=== PATIENT | male | born 1960 | race American Indian/Alaskan Native ===

== ENCOUNTER 2019-08-23 15:18 | Emergency (ER) | payer SELFPAY ==
--- NOTE | 2019-08-23 15:35 | Event Note ---
ED Screening Note Date of service: 08/23/19 Time: 15:29 ED Screening Note: 59 y o male presents with right leg swelling and pain with open wound x 2 days trip and fall land on feet 3 days ago, no initial pain was fine This initial assessment/diagnostic orders/clinical plan/treatment(s) is/are subject to change based on patients health status, clinical progression and re- assessment by fellow clinical providers in the ED. Further treatment and workup at subsequent clinical providers discretion. Patient/guardian urged not to elope from the ED as their condition may be serious if not clinically assessed and managed. Initial orders include: labs doppler xray
[2019-08-23 16:25] LABS: Basophils % (Auto) 0.3 % (0.0-1.8); Eosinophils # (Auto) 0.2 K/mm3 (0.0-0.4); Eosinophils % (Auto) 1.2 % (0.0-4.3); Hematocrit 40.3 % (35.5-45.6); Hemoglobin 13.5 gm/dl (11.8-15.2); Lymphocytes # (Auto) 1.1 K/mm3 (1.2-5.4); Lymphocytes % (Auto) 8.1 % (13.4-35.0); Mean Corpuscular HGB Conc 33 % (32-34); Mean Corpuscular Volume 84 fl (84-94); Monocytes # (Auto) 0.9 K/mm3 (0.0-0.8); Monocytes % (Auto) 6.9 % (0.0-7.3); Platelet Count 272 K/mm3 (140-440); Red Blood Count 4.79 M/mm3 (3.65-5.03); Red Cell Distribution Width 14.8 % (13.2-15.2)
[2019-08-23 16:35] LABS: BUN/Creatinine Ratio 14; Blood Urea Nitrogen 15 mg/dL (9-20); Calcium 9.2 mg/dL (8.4-10.2); Hemolysis Index 4
--- NOTE | 2019-08-23 16:44 | XRay Report ---
XR ankle 2V RT INDICATION: ankle pain. COMPARISON: None available. FINDINGS: There has been previous internal fixation in the distal left tibia with sideplate and screw fixation hardware. 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 There is no periprosthetic fra cture or hardware loosening. There is moderate diffuse soft tissue swelling without radiopaque foreign body or soft tissue gas. 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 Signer Name: Jermain Carolina MD Signed: 08/23/2019 4:39 PM Workstation Name: [id number]
--- NOTE | 2019-08-23 16:46 | XRay Report ---
XR foot 2V RT INDICATION / CLINICAL INFORMATION: Right foot pain and swelling. COMPARISON: None available. FINDINGS: There is moderate soft tissue swelling in the right foot without radiopaque foreign body or soft tiss ue gas. 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 There are no ag gressive appearing bone lesions. There is no aggressive bone destruction. Signer Name: Jermain Carolina MD Signed: 08/23/2019 4:41 PM Workstation Name: [id number]
--- NOTE | 2019-08-23 18:22 | Vascular Lab Report ---
VL venous duplex LE RT INDICATION / CLINICAL INFORMATION: r leg swellin. COMPARISON: None available. FINDINGS: No evidence of deep vein thrombosis. There is a large collection of complex fluid in the deep subcutaneous tissues of the lower leg. Sever al significantly enlarged but anatomically normal lymph nodes are demonstrated in the groin. IMPRESSION: 1. Large abnormal fluid collection in the subcutaneous tissues of the lower leg, with inguinal adenop athy. The possibility of abscess must certainly be considered. 2. Negative for deep vein thrombosis. Signer Name: Tyler Moreno MD Signed: 08/23/2019 6:17 PM Workstation Name: [id number]
[2019-08-23 21:29] VITALS: BP 130/58
[2019-08-23] MEDS ORDERED: CLINDAMYCIN 300 MG CAP PO ONE (22:00)
--- NOTE | 2019-08-23 22:39 | Emergency Department Report ---
- General Chief complaint: Extremity Injury, Lower Stated complaint: TRIPPED X 3 DAYS/RT ANKLE Time Seen by Provider: 08/23/19 21:41 Source: patient, family Mode of arrival: Wheelchair Limitations: Physical Limitation - History of Present Illness Initial comments: Reports patient has always had increased swelling of the right LE compared to the left LE. complaint: abscess/boil -: Gradual, days(s) (3 approximately) Location: RLE Severity: mild Severity scale (0 -10): 1 Quality: aching Consistency: constant Improves with: none Worsens with: none Associated symptoms: denies other symptoms - Related Data Previous Rx's Medication Instructions Recorded Last Taken Type Clindamycin [Clindamycin CAP] 300 mg PO Q6H #40 capsule 08/23/19 Unknown Rx Allergies Allergy/AdvReac Type Severity Reaction Status Date / Time No Known Allergies Allergy Unverified 08/23/19 15:20 Abscess Boil HPI - HPI Chief Complaint: Extremity Injury, Lower Stated Complaint: TRIPPED X 3 DAYS/RT ANKLE Time Seen by Provider: 08/23/19 21:41 Home Medications: Previous Rx's Medication Instructions Recorded Last Taken Type Clindamycin [Clindamycin CAP] 300 mg PO Q6H #40 capsule 08/23/19 Unknown Rx Allergies/Adverse Reactions: Allergies Allergy/AdvReac Type Severity Reaction Status Date / Time No Known Allergies Allergy Unverified 08/23/19 15:20 ED Review of Systems ROS: Stated complaint: TRIPPED X 3 DAYS/RT ANKLE Other details as noted in HPI Other: GENERAL: No weight change, fatigue, fever, chills, or night sweats SKIN: Right lower extremity erythema, draining wound. HEAD: No trauma EYES: No blurriness, tearing, itching, acute visual loss, conjunctival discoloration, or scleral icterus EARS: No hearing loss, tinnitus, vertigo, or earache NOSE: No rhinorrhea, stuffiness, sneezing, itching, or epistaxis MOUTH: No bleeding gums, hoarseness, sore throat, or swelling CARDIAC: No new murmur, chest pain, palpitations, dyspnea on exertion, orthopnea, PND, or edema RESPIRATORY: No shortness of breath, wheeze, cough, sputum production, hemoptysis GI: No nausea, vomiting, dysphagia, diarrhea, constipation, hematemesis, melena, hematochezia, or abdominal pain URINARY: No frequency, urgency, polyuria, dysuria, hematuria, or incontinence MUSCULOSKELETAL: No muscle weakness, joint stiffness, decrease in range of motion, redness, swelling NEUROLOGIC: No headache, syncope, loss of sensation, numbness, tingling, tremors, weakness, paralysis, seizures HEMATOLOGIC: No anemia, easy bruising, bleeding, petechiae, or purpura ENDOCRINE: No hot or cold intolerance, sweating, polyuria, polydipsia or, polyphagia no thyroid problems PSYCHIATRIC: No change in mood, no anxiety, no depression ED Past Medical Hx - Surgical History Additional Surgical History: knee /ANKLE SURGERY - Social History Smoking Status: Former Smoker Substance Use Type: Alcohol - Medications Home Medications: Home Medications Medication Instructions Recorded Confirmed Last Taken Type Clindamycin [Clindamycin CAP] 300 mg PO Q6H #40 capsule 08/23/19 Unknown Rx ED Physical Exam - General Limitations: Physical Limitation - Other Other exam information: GENERAL: Patient in no acute distress HEAD: Normocephalic, atraumatic EYES: PERRLA, EOM intact, no scleral icterus, no conjunctival hemorrhage, visual ferrer and acuity wnl NOSE: No tenderness, discharge, sinus tenderness MOUTH: No erythema, bleeding, exudate HEART: Regular rate and rhythm, no murmur, S1-S2 are auscultated, no edema, pulses are symmetric LUNGS: No respiratory distress. Bilateral breath sounds, No tachypnea, No retractions, No wheezing, rales, rhonchi ABDOMEN: Normal bowel sounds, abdomen soft, no tenderness, no rebound, no guarding, no distention, no masses, no CVA tenderness MUSCULOSKELETAL: Right LE swelling, distal medial tibia erythema, warmth, and draining pustulous wound, mild tenderness. Normal joint range of motion NEUROLOGIC: GCS 15, Alert and Oriented x3, Cranial nerves intact, normal sensation, normal strength, no cerebellar deficit, NIHSS 0 SKIN: dry. ED Course Vital Signs 08/23/19 08/23/19 15:28 21:28 Temperature 99 F 99.9 F H Pulse Rate 85 90 Respiratory 18 17 Rate Blood Pressure 155/121 Blood Pressure 130/58 [Left] O2 Sat by Pulse 99 96 Oximetry ED Medical Decision Making - Lab Data Result diagrams: 08/23/19 15:43 08/23/19 15:43 Laboratory Results - last 24 hr 08/23/19 08/23/19 15:43 15:43 WBC 13.1 H RBC 4.79 Hgb 13.5 Hct 40.3 MCV 84 MCH 28 MCHC 33 RDW 14.8 Plt Count 272 Lymph % (Auto) 8.1 L [place] % (Auto) 6.9 Eos % (Auto) 1.2 Baso % (Auto) 0.3 Lymph # 1.1 L [place] # 0.9 H Eos # 0.2 Baso # 0.0 Seg Neutrophils % 83.5 H Seg Neutrophils # 11.0 H Sodium 139 Potassium 4.0 Chloride 97.7 L Carbon Dioxide 28 Anion Gap 17 BUN 15 Creatinine 1.1 Estimated GFR > 60 BUN/Creatinine Ratio 14 Glucose 138 H Calcium 9.2 - Radiology Data Radiology results: report reviewed - Medical Decision Making Patient comfortable. Updated with results. Plan discharge with outpatient follow up. Strict return precautions for n/v, fever, worsening rash. Agrees to return if any worsening. Critical care attestation.: If time is entered above; I have spent that time in minutes in the direct care of this critically ill patient, excluding procedure time. ED Disposition Clinical Impression: Cellulitis Qualifiers: Site of cellulitis: unspecified site Qualified Code(s): L03.90 - Cellulitis, unspecified Disposition: DC-01 TO HOME OR SELFCARE Is pt being admited?: No Condition: Stable Instructions: Cellulitis (ED) Prescriptions: Clindamycin [Clindamycin CAP] 300 mg PO Q6H #40 capsule Referrals: [facility] [Outside] - 2-3 Days Time of Disposition: 22:39
== END 2019-08-23 22:56 | disposition home or self-care (01) ==
LOC: EDBD → ED 15:18
DX: L03.115 Cellulitis of right lower limb (principal); Z79.899 Other long term (current) drug therapy; Z87.891 Personal history of nicotine dependence
CPT/HCPCS: 36415; 80048; 85025